=== PATIENT | female | born 1940 | race Two or more races ===

== ENCOUNTER 2019-05-12 10:30 | Inpatient (IN) | payer OTHER ==
[~2019-05-12] VITALS: Ht 157.5 cm; Wt 66.2 kg
[2019-05-15] MEDS ORDERED: PROTONIX40 MG PO (14:26)
[2019-05-15] MEDS ORDERED: ZESTRIL40 M1 PO (14:27)
[2019-05-15] MEDS ORDERED: ASA81 MG PO (14:27)
[2019-05-15] MEDS ORDERED: IRON325 MG PO (14:27)
[2019-05-15] MEDS ORDERED: ZYRTEC10 M3 PO (14:27)
[2019-05-15] MEDS ORDERED: NORVASC2.5 M1 PO (14:27)
[2019-05-15] MEDS ORDERED: METFORMIN HCL1000 M1 PO (14:27)
[2019-05-15] MEDS ORDERED: LASIX40 MG PO (14:28)
[2019-05-15] MEDS ORDERED: LIPITOR20 MG PO (14:28)
[2019-05-15] MEDS ORDERED: LOPRESSOR25 MG PO (14:28)
[2019-05-15] MEDS ORDERED: VITAMIN B-121000 MC1 PO (14:29)
== END 2019-06-09 21:01 | disposition home or self-care (01) | DRG 330 ==
LOC: ADM 10:30 → EDSTATUS 10:30 → SURH 05-23 10:30 → SURG 06-06 05:45 → O/R 06-06 05:45 → SURG 06-06 16:22
PROVIDERS: ADMIT Colon & Rectal Surgery
PROC: 0DTP4ZZ Resection of Rectum, Percutaneous Endoscopic Approach (ICD-10-PCS; 2019-06-06)
PROC: 07TC4ZZ Resection of Pelvis Lymphatic, Percutaneous Endoscopic Approach (ICD-10-PCS; 2019-06-06)
PROC: 0D1N474 Bypass Sigmoid Colon to Cutaneous with Autologous Tissue Substitute, Percutaneous Endoscopic Approach (ICD-10-PCS; principal; 2019-06-06 17:30)
DX: C20 Malignant neoplasm of rectum (principal); K92.1 Melena; C77.2 Secondary and unspecified malignant neoplasm of intra-abdominal lymph nodes; D62 Acute posthemorrhagic anemia; Z85.048 Personal history of other malignant neoplasm of rectum, rectosigmoid junction, and anus; Z08 Encounter for follow-up examination after completed treatment for malignant neoplasm; I11.9 Hypertensive heart disease without heart failure; K63.89 Other specified diseases of intestine

== ENCOUNTER 2020-06-14 09:17 | Day surgery (SDC) | payer OTHER ==
[~2020-06-14 09:17] MED LIST: ASA81 MG PO; IRON325 MG PO; LASIX40 MG PO; LIPITOR20 MG PO; LOPRESSOR25 MG PO; METFORMIN HCL1000 M1 PO; NORVASC2.5 M1 PO; PROTONIX40 MG PO; VITAMIN B-121000 MC1 PO; ZESTRIL40 M1 PO; ZYRTEC10 M3 PO
== END 2020-06-14 15:10 | disposition home or self-care (01) ==
LOC: AMB-ENDOS 09:17
PROVIDERS: ATTEND Colon & Rectal Surgery
DX: K62.89 Other specified diseases of anus and rectum (principal); Z20.828 Contact with and (suspected) exposure to other viral communicable diseases

== ENCOUNTER 2021-11-28 07:03 | Day surgery (SDC) | payer OTHER | END 2021-11-28 13:56 | disposition home or self-care (01) | LOC: AMB-ENDOS 07:03 | PROVIDERS: ATTEND Colon & Rectal Surgery | DX: D12.4 Benign neoplasm of descending colon (principal); Z20.822 Contact with and (suspected) exposure to COVID-19 ==